=== PATIENT | female | born 1980 | race Caucasian/White ===

== ENCOUNTER 2024-07-09 21:14 | Emergency (ER) | payer OTHER, SELFPAY ==
[2024-07-09 21:21] VITALS: BP 141/94
--- NOTE | 2024-07-10 00:43 | ED.GENMED ---
History of Present Illness
General
Chief Complaint: Headache
Source: patient and previous hospital records (Hospitalization January 2023 for evaluation of blurred vision, ataxia. Unremarkable neuroimaging including CT and MRI.)
Exam Limitations: none
Time Seen by Provider: 07/10/24 00:06
Nursing documentation reviewed up to this point in time: agreed with
History of Present Illness
History of Present Illness:
This is a 44-year-old woman with history of mild intermittent asthma, occasional migraine headaches as well as hypotension for which she is prescribed as needed midodrine, as needed albuterol and takes Excedrin Migraine as needed.
While in the shower this evening she dropped the soap, bent over to pick it up and while standing back up she lifted her head and immediately felt a pop and severe pain posterior neck that has persisted and progressed to generalized headache
associated with dizziness. Symptoms were sudden in onset and with dizziness, unsteadiness she fell backward injuring her right hand and wrist. She denies fall onto the ground but was able to catch herself by steadying herself with her right hand
behind her. She denies head injury, no loss of consciousness. Has not taken anything for discomfort. She denies vision difficulty, no weakness nor numbness.
She continues with moderate posterior neck pain, moderate generalized headache.
She denies risk of , last menstrual period 1 month ago, normal and on time.
Past History
Past History
ED Past Medical History: Arrthythmia (SVT), Asthma and Other (Vascular reflux disease)
ED Past Surgical History: Gynecological ( ovarian cysts �22) and Other (Right vein removed in leg)
Social History
Tobacco: Former smoker
Alcohol: None
Personal: Single
Living: with family
Employment: Employed
Family History
Family History: Other (Diabetes, scleroderma, COPD, psoriasis)
Phy Exam
Physical Exam
Physical Exam:
GENERAL: 44-year-old woman appears her stated age, awake and alert, pleasant, easily communicative and overall appears in no acute distress.
EYE: pupils equal and reactive. Extraocular muscles intact. Anicteric
NECK: Supple, no midline bony tenderness, mild paracervical muscle tenderness to palpation, no palpable muscle spasm, no meningismus, no significant adenopathy.
ENT: posterior pharynx is clear, oral mucosa is moist. TM clear b/l, nares patent.
CARDIAC: Regular rate and rhythm. no murmur.
LUNGS: Clear breath sounds bilaterally, no acute respiratory distress, no wheezes/rales/rhonchi
ABDOMEN: Soft, nondistended, without focal tenderness, no r/g, no cvat. normoactive BS.
NEUROLOGICAL: Alert and oriented x3, no focal neuro deficits.
SKIN: Warm and dry, normal color, skin intact. No rash.
MUSCULOSKELETAL: No C/C/E. peripheral pulses are full and equal b/l. Moderate tenderness thenar eminence and base of the right thumb without soft tissue swelling nor ecchymosis. Full digit and wrist range of motion with increased pain with flexion
and extension of right thumb. Sensation and strength intact.
PSYCH: Normal and appropriate interaction.
Course
Orders/Labs/Results
Orders:
Orders
07/09/24 21:[address] [CT Head W/o Iv Contrast] Stat
Comment:
Reason For Exam: pain/head/eye pressure
Wrist, Right 3 Views [CR Wrist - Right Min 3 Views] Stat
Comment:
Reason For Exam: pain
07/09/24 21:27
Cervical Spine wo Contrast CT [CT Cervical Spine W/o Iv Contr] Stat
Comment:
Reason For Exam: pain
07/10/24 00:37
CT Head & Neck Angio W/wo IV Urgent
Comment:
Reason For Exam: severe acute post neck pain, headache-dizziness
07/10/24 00:41
0.9% Sodium Chloride 1000 ml [Nss] 1,000 ml IV BOLUS
Diphenhydramine [Benadryl] 25 mg IV NOW STA
Prochlorperazine [Compazine] 10 mg IV NOW STA
Vital Signs
Initial and Last Documented VS:
Initial Vital Signs
Temp Pulse Resp BP Pulse Ox
98.3 F 89 16 141/94 99
07/09/24 21:21 07/09/24 21:21 07/09/24 21:21 07/09/24 21:21 07/09/24 21:21
Last Documented Vital Signs
Temp Pulse Resp BP Pulse Ox
98.3 F 89 16 110/75 97
07/09/24 21:21 07/09/24 21:21 07/09/24 21:21 07/10/24 01:00 07/10/24 02:34
MDM/Problems Addressed
Differential Diagnosis Includes:
Concern for acute cervical strain, other consideration is vertebral dissection.
Concern for right hand contusion/sprain. Less likely fracture.
CT of the head and cervical spine are unremarkable. Right wrist/hand x-ray unremarkable.
Patient continues with moderate posterior neck pain, generalized headache thus vertebral dissection remains a consideration thus will check CTA of the head and neck.
Will medicate for pain/headache with IV Compazine and Benadryl.
*Radiology
Radiology exam reviewed: radiology read reviewed
*Pulse Oximetry
Patient hypoxic: no
*Critical Care Note
Total Time (30-74mins, 75-104mins- exclusive of procedures): Not Applicable
Update Note
Update Note:
03:50
Patient feeling markedly improved with complete relief of headache, neck pain. Eager to be discharged to home.
CTA of the head and neck is unremarkable.
I suspect acute cervical strain.
Recommend supportive measures, Tylenol versus aspirin versus Excedrin Migraine which patient states she has no adverse reactions to. Local ice versus heat.
Prompt follow-up with PCP for recheck.
ED Attending Note
-
Portions of this chart may have been created with voice recognition software.� Occasional wrong word or��sound alike� substitutions may have occurred due to the inherent limitations of voice recognition software.
Discharge Plan
Departure
Patient Disposition: Home (Routine Discharge)
Date of Disposition: 07/10/24
Time of Disposition: 03:49
Patient with high blood pressure during this ER visit?: No
Condition: Good
Discharge Problem:
Acute cervical myofascial strain, Contusion of hand, right
Instructions: Cervical Sprain ED, Contusion
Prescriptions:
No Action
nystatin 100,000 unit/gram Ointment
1 applic TOPICAL BIDPRN PRN (Reason: itching/irritation)
Rx Instructions:
Apply topically 2 times a day as needed (itching/irritation)
midodrine 5 mg tablet
5 mg PO TID PRN (Reason: if blood pressure less than 100 systolic) Qty: 20 0RF
Referrals:
Christen Hardy DO [Family Provider, Internal Medicine] - Call in 1-3 days for appt
Interventions
Interventions:
*Risk Screen - Suicide Last Done: 07/09/24 21:21
*General Assessment Last Done: 07/10/24 02:33
*Neglect/Abuse Screening Last Done: 07/09/24 21:21
*ED- Fall Risk Assessment Last Done: 07/10/24 02:33
*ED COVID-19 Vaccine History Last Done: 07/10/24 02:33
ED- Neurological Assessment Last Done: 07/10/24 02:34
Discharge Date and Time
Print Language: IRANIAN
[2024-07-10 01:00] VITALS: BP 110/75
[2024-07-10] MEDS: NSS 1000 IV (01:02)
[2024-07-10] MEDS: BENADRYL 25 MG IV (01:03)
[2024-07-10] MEDS: COMPAZINE 10 MG IV (01:03)
[2024-07-10 02:34] VITALS: BMI 33.9
== END 2024-07-10 04:17 | disposition home or self-care (01) ==
LOC: EMR 21:14
PROVIDERS: EMERGENCY PHYSICIAN Emergency Medicine; FAMILY PHYSICIAN Internal Medicine
DX: S16.1XXA Strain of muscle, fascia and tendon at neck level, initial encounter (principal); S60.221A Contusion of right hand, initial encounter; X50.1XXA Overexertion from prolonged static or awkward postures, initial encounter; R51.9 Headache, unspecified; J45.20 Mild intermittent asthma, uncomplicated; Z87.891 Personal history of nicotine dependence
CPT/HCPCS: 96374; 96375; 96361; 99284; 70450; 70496; 70498; 72125; 73110; Q9967

== ENCOUNTER 2024-08-18 04:40 | Emergency (ER) | payer OTHER, SELFPAY ==
[2024-08-18 04:43] VITALS: BP 113/81
[2024-08-18 05:01] LABS: Urine Character Clear (Clear)
--- NOTE | 2024-08-18 05:39 | ED.GENMED ---
History of Present Illness
<Shyla Carlton PA-C - Last Filed: 08/18/24 10:03>
General
Chief Complaint: Urinary Symptoms
Source: patient
Exam Limitations: none
Time Seen by Provider: 08/18/24 05:28
Nursing documentation reviewed up to this point in time: agreed with
History of Present Illness
History of Present Illness:
Note:
CHIEF COMPLAINT(S)
Abdominal and flank pain with difficulty urinating
HISTORY OF PRESENT ILLNESS
The patient is a 44-year-old female with a history of urinary tract infections, SVT, tourette's syndrome, uterine prolapse, presents emergency department today with concerns of difficulty urinating and flank pain starting 2 days ago. She reports no
initial symptoms such as burning sensation or typical signs preceding a UTI. Patient is concerned because she reports that she has had a history of asymptomatic UTIs and patient reports that she waited a long time before she was seen by a medical
provider and she reports that she became septic as a result of a kidney infection. Patient reports that she was seen here for that problem however I do not see any record of that hospitalization in [facility] today. The patient describes the pain as
intense and incapacitating, with a recent decrease in severity, attributing the improvement to increased oral fluid intake. The pain was initially concentrated in the kidney areas and shifted to the pelvis, making her concerned due to her known
uterine prolapse, which has predisposed her to frequent infections.
The patient attempted self-management by drinking large amounts of water and cranberry juice but noted not consuming any food yesterday, only resting and hydrating. Despite increased fluid intake, she fears an obstruction due to the reduced output
of urine compared to intake. There is a noted history of blood in her urine from prior similar episodes. The patient is worried about a possible kidney infection or the presence of kidney stones, noting similarities to past experiences. She has not
been previously tested for kidney stones but reports concern due to dietary habits high in red meat, which she recently learned could contribute to stone formation. Her history includes significant uterine prolapse and previous surgical
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
ADDITIONAL HISTORY OBTAINED FROM SOURCES OTHER THAN THE PATIENT
The patients spouse was noted as the motivation for seeking care earlier to prevent a repeat of the previous progression to sepsis.
SOCIAL DETERMINANTS AFFECTING HEALTH
Per the patient, her uterine prolapse has made physical activity including exercise challenging due to discomfort and increased leakage. This has impacted her quality of life and ability to maintain fitness activities. The patient has high
cleanliness standards, showering multiple times daily to manage discomfort and leakage.
She has tried using different pessary sizes and shapes which have not helped
PAST SURGICAL HISTORY
- Multiple surgeries due to ovarian cysts leading to pelvic scarring
REVIEW OF SYSTEMS
See HPI
PHYSICAL EXAM
Nursing notes reviewed and vital signs reviewed.
General: Patient is well appearing and in no acute distress; non-toxic
Skin: Warm and dry, no rashes or lesions
Head: Normocephalic, atraumatic
Eyes: Sclera non-icteric. EOMs intact.
Cardiac: Regular rate and rhythm, no murmurs
Peripheral Vascular: No lower extremity swelling or edema
Pulm: Normal respiratory effort, no wheezes, rales, rhonchi
Abdomen: Abdomen soft nontender to palpation. No CVA tenderness bilaterally.
Neuro: CN II-XII intact, no focal neurologic deficits.
Psychiatric: Appropriate mood and affect.
PLAN
- Order blood work and a computed tomography (CT) scan to evaluate for potential kidney stones or other obstructions.
- Recommend trial of different pessary sizes to alleviate discomfort from uterine prolapse and maintain internal support as advised by her drop count associate-wirer.
- Patient declined current need for pain medication, focusing instead on fluid intake. She declined medication for nausea.
DIFFERENTIAL DIAGNOSIS
The Differential Diagnosis includes, in no particular order and is not limited to:
1. Urinary tract infection
2. Pyelonephritis
3. Urolithiasis (kidney stones)
4. Ureteral obstruction
5. Interstitial cystitis
6. Acute abdominal condition
7. Endometriosis or related pain
8. Adhesion-related pain from past surgeries
9. Pelvic inflammatory disease
10. Bladder outlet obstruction due to prolapse
CHART REVIEW
Reviewed discharge summary from 01/24/2023 patient seen for blurred vision as well as ataxia, she had a normal neurologic workup and was scheduled to see bead forming machine set up operator in 24 hours pending discharge
Reviewed discharge summary from 01/01/2023 patient admitted for sigmoid diverticulitis received IV antibiotics
MDM/DISPOSITION
The patient is a 44-year-old female with a history of urinary tract infections, SVT, Tourette's syndrome, asthma, uterine prolapse, presents emergency department today with concerns of difficulty urinating and flank pain starting 2 days ago.
Patient feels that she has been drinking a lot of fluids and she feels that her urinary output is not consistent with the amount of fluid she has been taking in. Patient reports that the pain is radiating to the front now with some pain over her
pelvis. She has no burning with urination. On review of her labs, she has a mild leukocytosis but otherwise unremarkable blood work. Looking at her urinalysis, she is occult blood, so will send for CT scan to rule out kidney stone or other
obstructive process. She does have moderate bacteria in her urine however normal white blood cell count no evidence of urine nitrates or leukocyte esterase, will consider treating prophylactically for UTI versus waiting for culture. She declined
medicine for pain and nausea. Discussed case with Ed Harry DE LA GARZA for sign out pending CT scan results. Anticipate discharge.
Past History
<Shyla Carlton PA-C - Last Filed: 08/18/24 10:03>
Past History
ED Past Medical History: Arrthythmia (SVT), Asthma and Other (Vascular reflux disease)
ED Past Surgical History: Gynecological ( ovarian cysts �22) and Other (Right vein removed in leg)
Social History
Tobacco: Former smoker
Alcohol: None
Personal: Single
Living: with family
Employment: Employed
Family History
Family History: Other (Diabetes, scleroderma, COPD, psoriasis)
Phy Exam
<Shyla Carlton PA-C - Last Filed: 08/18/24 10:03>
Physical Exam
Physical Exam:
see hpi
Course
<Shyla Carlton PA-C - Last Filed: 08/18/24 10:03>
Orders/Labs/Results
Orders:
Orders
08/18/24 04:55
HCG, Urine Qualitative Screen Urgent
Date Specimen was Collected: 08/18/24
Time Specimen was Collected: 04:50
Comment: ADD ON
Urinalysis Reflex To Culture Urgent
Date Specimen was Collected: 08/18/24
Time Specimen was Collected: 04:50
Urine Microscopic Reflex Cult Urgent
Urine Culture Urgent
GENA Source: U
Specimen Description:
Date Specimen was Collected: 08/18/24
Time Specimen was Collected: 04:50
08/18/24 05:51
IV Insert/Care/Rem.- Treatment PRN
0.9% Sodium Chloride 500 ml [Nss] 500 ml IV BOLUS
08/18/24 05:52
CT Abd/pel Without Iv Or Oral Urgent
Comment:
Reason For Exam: flank pain
08/18/24 05:57
Add On - Microbiology Urgent
Tests Added?: urine qual
08/18/24 05:59
Complete Blood Count/With Diff Urgent
Comprehensive Metabolic Panel Urgent
08/18/24 08:12
Cefdinir [Omnicef] 300 mg PO NOW STA
Abnormal Lab Results
08/18/24 08/18/24
04:55 05:59
WBC 11.3 H 10^3/uL
(4.8-10.8)
Absolute Neuts (auto) 7.2 H 10^3/uL
(1.4-6.5)
Absolute Monos (auto) 1.0 H 10^3/uL
(0.1-0.6)
Glucose 115 H mg/dl
(70-99)
Ur Occult Blood Reflex 1+ A
(Negative)
Urine RBC 3-6 A /HPF
(0-2)
Urine Bacteria (Reflex) Moderate A
(Negative)
Urine Albumin (Reflex) 1+ A
(Neg - Trace)
08/18/24 05:59
08/18/24 05:59
Vital Signs
Initial and Last Documented VS:
Initial Vital Signs
Temp Pulse Resp BP Pulse Ox
98.4 F 117 20 113/81 97
08/18/24 04:43 08/18/24 04:43 08/18/24 04:43 08/18/24 04:43 08/18/24 04:43
Last Documented Vital Signs
Temp Pulse Resp BP Pulse Ox
98.4 F 91 16 122/65 99
08/18/24 04:43 08/18/24 08:38 08/18/24 08:38 08/18/24 08:38 08/18/24 08:38
<Boris Mcdonald Jr., ROBERT-C - Last Filed: 08/19/24 08:09>
Orders/Labs/Results
Orders:
Orders
08/18/24 04:55
HCG, Urine Qualitative Screen Urgent
Date Specimen was Collected: 08/18/24
Time Specimen was Collected: 04:50
Comment: ADD ON
Urinalysis Reflex To Culture Urgent
Date Specimen was Collected: 08/18/24
Time Specimen was Collected: 04:50
Urine Microscopic Reflex Cult Urgent
Urine Culture Urgent
GENA Source: U
Specimen Description:
Date Specimen was Collected: 08/18/24
Time Specimen was Collected: 04:50
08/18/24 05:51
IV Insert/Care/Rem.- Treatment PRN
0.9% Sodium Chloride 500 ml [Nss] 500 ml IV BOLUS
08/18/24 05:52
CT Abd/pel Without Iv Or Oral Urgent
Comment:
Reason For Exam: flank pain
08/18/24 05:57
Add On - Microbiology Urgent
Tests Added?: urine qual
08/18/24 05:59
Complete Blood Count/With Diff Urgent
Comprehensive Metabolic Panel Urgent
08/18/24 08:12
Cefdinir [Omnicef] 300 mg PO NOW STA
Abnormal Lab Results
08/18/24 08/18/24
04:55 05:59
WBC 11.3 H 10^3/uL
(4.8-10.8)
Absolute Neuts (auto) 7.2 H 10^3/uL
(1.4-6.5)
Absolute Monos (auto) 1.0 H 10^3/uL
(0.1-0.6)
Glucose 115 H mg/dl
(70-99)
Ur Occult Blood Reflex 1+ A
(Negative)
Urine RBC 3-6 A /HPF
(0-2)
Urine Bacteria (Reflex) Moderate A
(Negative)
Urine Albumin (Reflex) 1+ A
(Neg - Trace)
08/18/24 05:59
08/18/24 05:59
Vital Signs
Initial and Last Documented VS:
Initial Vital Signs
Temp Pulse Resp BP Pulse Ox
98.4 F 117 20 113/81 97
08/18/24 04:43 08/18/24 04:43 08/18/24 04:43 08/18/24 04:43 08/18/24 04:43
Last Documented Vital Signs
Temp Pulse Resp BP Pulse Ox
98.4 F 91 16 122/65 99
08/18/24 04:43 08/18/24 08:38 08/18/24 08:38 08/18/24 08:38 08/18/24 08:38
<Shyla Carlton PA-C - Last Filed: 08/18/24 10:03>
*Pulse Oximetry
SaO2: 97
Oxygen Mode of Delivery: Room air
Patient hypoxic: no
*Critical Care Note
Total Time (30-74mins, 75-104mins- exclusive of procedures): Not Applicable
<Boris Mcdonald Jr., PA-C - Last Filed: 08/19/24 08:09>
Update Note
Update Note:
Patient was reassessed patient in no distress. CT scan without emergent findings. Patient was discussing ongoing urinary symptoms. Will start empiric antibiotics pending culture. Otherwise stable for discharge. Return precautions given.
ED Attending Note
<Shyla Carlton PA-C - Last Filed: 08/18/24 10:03>
-
Portions of this chart may have been created with voice recognition software.� Occasional wrong word or��sound alike� substitutions may have occurred due to the inherent limitations of voice recognition software.
Discharge Plan
Departure
Patient Disposition: Home (Routine Discharge)
Date of Disposition: 08/18/24
Time of Disposition: 08:13
Patient with high blood pressure during this ER visit?: No
Condition: Good
Covid-19: Not Applicable
Discharge Problem:
UTI symptoms
Instructions: Urinary Tract Infection, Adult (DC)
Prescriptions:
New
cefdinir 300 mg capsule
300 mg PO BID 5 Days Qty: 10 0RF
No Action
midodrine 5 mg tablet
5 mg PO TID PRN (Reason: if blood pressure less than 100 systolic) Qty: 20 0RF
albuterol sulfate 90 mcg/actuation Hfa Aerosol Inhaler
2 puff INHALATION QID PRN (Reason: asthma)
omeprazole 20 mg Tablet,Delayed Release (Dr/Ec)
20 mg PO DAILY
Referrals:
Christen Hardy, [Family Provider, Internal Medicine]
Activity Restrictions/Additional Instructions:
You came to the emergency department today with concerns for urinary symptoms. Here you have a reassuring assessment. Please take the prescribed antibiotic and follow-up closely with the primary care doctor within 1 week. Return for any
worsening, new or concerning symptoms.
Interventions
Interventions:
*Risk Screen - Suicide Last Done: 08/18/24 04:43
*General Assessment Last Done: 08/18/24 06:00
*Neglect/Abuse Screening Last Done: 08/18/24 04:43
*ED- Fall Risk Assessment Last Done: 08/18/24 06:00
*ED COVID-19 Vaccine History Last Done: 08/18/24 06:00
*Nursing Disposition Last Done: 08/18/24 08:38
ED-Female Genitourinary Assessment Last Done: 08/18/24 07:01
Discharge Date and Time
Discharge Date/Time: 08/18/24 08:39
Print Language: MARSHALLESE
[2024-08-18 05:55] LABS: Urine Squamous Cell >30 /LPF (Few)
[2024-08-18 06:00] VITALS: BMI 36.0
[2024-08-18] MEDS: NSS 500 IV (06:10)
[2024-08-18 06:25] LABS: HCG, Urine Qualitative Screen Negative
[2024-08-18 06:27] LABS: Hematocrit 40.1 % (37.0-47.0); Hemoglobin 13.7 g/dL (12.0-16.0); Mean Corp Hgb Conc. 34.2 g/dL (33.0-37.0); Mean Corpuscular Volume 84.2 fL (81.0-99.0); Nucleated Red Blood Cells % 0 %; Platelet Count 286 10^3/uL (130-400); Red Cell Dist. Width 12.4 % (11.5-14.5)
[2024-08-18 06:40] LABS: ALT (SGPT) 24 U/L (0-35); AST (SGOT) 20 U/L (14-36); Albumin 4.5 g/dl (3.5-5.0); Alkaline Phosphatase 58 U/L (38-126); Blood Urea Nitrogen 10 mg/dl (7-17); Calcium 9.4 mg/dl (8.4-10.2); Carbon Dioxide 24 mmol/L (22-30); Chloride 106 mmol/L (98-107); Estimated Creatinine Clearance > 125 ml/min; Glucose 115 mg/dl (70-99); Potassium 3.5 mmol/L (3.5-5.1); Sodium 137 mmol/L (135-145); Total Protein 7.1 g/dl (6.3-8.2); eGFR > 60.00
[2024-08-18] MEDS: OMNICEF 300 MG PO (08:34)
[2024-08-18 08:38] VITALS: BP 122/65
== END 2024-08-18 08:39 | disposition home or self-care (01) ==
LOC: EMR 04:40
PROVIDERS: Physician Assistant; EMERGENCY PHYSICIAN Emergency Medicine; FAMILY PHYSICIAN Internal Medicine
DX: R39.198 Other difficulties with micturition (principal); R10.30 Lower abdominal pain, unspecified; R39.15 Urgency of urination; M54.9 Dorsalgia, unspecified; N81.4 Uterovaginal prolapse, unspecified; F95.2 Tourette's disorder; J45.909 Unspecified asthma, uncomplicated; I47.10 Supraventricular tachycardia, unspecified; Z87.440 Personal history of urinary (tract) infections; Z87.891 Personal history of nicotine dependence; Z88.6 Allergy status to analgesic agent; Z88.5 Allergy status to narcotic agent; Z88.0 Allergy status to penicillin
CPT/HCPCS: 99284; 96360; 74176; 80053; 81003; 81015; 81025; 85025; 87086